=== PATIENT | male | born 2000 | race Caucasian/White ===

== ENCOUNTER 2020-12-07 10:07 | Emergency (ER) | payer OTHER, SELFPAY ==
[2020-12-07 10:18] VITALS: BP 132/68; PULSE 70; RESP 16; TEMP 36.8; O2SAT 100
--- NOTE | 2020-12-07 10:29 | ED.SKABFB ---
HPI - Skin/Abscess/Foreign Bdy General Chief complaint: Skin/Abscess/Foreign Body Stated complaint: Rash Source: patient and RN notes reviewed Limitations: no limitations History of Present Illness HPI narrative: The patient previously mostly healthy, presents with skin eruption. Patient states he has about nearly weeklong history of pink,, only slightly raised, itchy eruption on extremities and trunk. He was seen in urgent care last week and treated with nystatin for a different, preceding tinea cruris -which is improved. No fever, prodrome/URI, herald or patches; symptoms are mild worse with scratching Related Data Allergies Allergy/AdvReac Type Severity Reaction Status Date / Time No Known Allergies Allergy Verified 12/07/20 10:19 Review of Systems Review of Systems: Narrative: General/Constitutional: No weight loss,fever Eyes: N0: Redness,discharge Ears/Nose/Throat: No: Epistaxis,ear discharge Respiratory: Denies: Hemoptysis Gastrointestinal: No Vomiting, Bleeding-rectal Skin: No Lumps, REPORTS eruption Neurologic: No Focal Weakness,Sz Hematologic: Denies: Petechiae/Purpura Psychiatric: No: Suicida ideationl All Other Systems: Reviewed and Negative PMFSH Comments At time of signature, agree with nursing past medical, surgical, social and family history. There is no relevant family history pertinent to the presenting complaint Exam Narrative: Exam Narrative: General Appearance: Well-nourished; Normocephalic, Conjunctiva clear Nose: Normal nose, Nare clear Mouth/Throat: Normal appearing, Supple Respiratory: Airway patent, No respiratory distress Musculoskeletal: Moves all extremities, Non tender Skin: Warm, Dry ; small, isolated papulo-sqaumaous eruption of trunk and extremities Neurological: A&O x3, Normal affect Course Vital Signs Vital signs: Vital Signs Temperature 98.2 F 12/07/20 10:18 Pulse Rate 70 12/07/20 10:18 Respiratory Rate 16 12/07/20 10:18 Blood Pressure 132/68 12/07/20 10:18 Pulse Oximetry 100 12/07/20 10:18 Temperature 98.2 F 12/07/20 10:18 Pulse Rate 70 12/07/20 10:18 Respiratory Rate 16 12/07/20 10:18 Blood Pressure 132/68 12/07/20 10:18 Pulse Oximetry 100 12/07/20 10:18 Discharge Plan Discharge Clinical Impression: Papulosquamous dermatosis Patient Disposition: Home, Self-Care Condition: Stable Instructions: Pityriasis rosea (ED) Additional Instructions: Also try antifungal shampoos with selenium, like Selsun Prescriptions: New fluconazole 150 mg tablet 150 mg PO WEEKLY Qty: 2 RF: 2 Follow-up/Referrals: PHYSICIAN,[facility] [Primary Care Provider] -
== END 2020-12-07 10:45 | disposition home or self-care (01) ==
PROVIDERS: Emergency Provider Emergency Medicine
DX: L44.9 Papulosquamous disorder, unspecified (principal)
CPT/HCPCS: 99213; G0463